=== PATIENT | male | born 1960 | race African-American/Black ===

== ENCOUNTER 2016-08-01 23:18 | Emergency (ER) | payer MEDICAID ==
[~2016-08-01] VITALS: Ht 175.3 cm; Wt 72.6 kg
[~2016-08-01 23:18] MED LIST: DILANTIN100 MG ORAL; DILANTIN30 MG ORAL
[2016-08-01] MEDS ORDERED: Phenytoin 500 MG in NS 110 ML IVPB ONE (23:30)
[2016-08-01] MEDS ORDERED: Phenytoin Susp 100mg/4ml NG ONE (23:30)
[2016-08-01] MEDS ORDERED: TdaP Vaccine 0.5ml Syr IM ONE (23:30)
[2016-08-01] MEDS ORDERED: Phenytoin 250mg/5ml vial ONE (23:42)
[2016-08-01] MEDS ORDERED: Phenytoin 100mg cap ORAL ONE (23:45)
[2016-08-01 23:59] VITALS: BP 125/90
[2016-08-02] MEDS ORDERED: Lidocaine 1% 10mg/ml/Epi 0.005mg/ml 30ml vial INJ ONE ×2 (00:36→00:45)
[2016-08-02 02:15] VITALS: BP 107/69
[2016-08-02] MEDS ORDERED: DILANTIN100 MG ORAL (02:50)
--- NOTE | 2016-08-02 02:50 | Emergency Room Report ---
History of Present Illness General Chief Complaint: Laceration Source: Patient, Medical Record, EMS Present Illness HPI Is a 56-year-old male with a history of seizure. He was brought in by EMS for head injury. Patient was sleeping on a bench and fell off the bench sustaining a laceration to the right eyebrow forehead area. Patient said he has a seizure before he fell. He did have incontinence of his urine. He said he did bite his tongue. Patient did admit to drinking heavily today. He is homeless and alcoholic. He said he hasn't been taking his Dilantin. No other injury. Not suicidal or homicidal. No other complaint. Allergies: Coded Allergies: No Known Allergies (Unverified , 08/25/13) Patient History Past Medical History: see triage record, old chart reviewed, seizures Past Surgical History: other Pertinent Family History: none Social History: Reports: alcohol use Immunizations: other Reviewed Nursing Documentation: PMH: Agreed, PSxH: Agreed Nursing Documentation-PMH Hx Cardiac Problems: No Hx Hypertension: Yes Hx Cancer: No Hx Gastrointestinal Problems: No Hx Neurological Problems: Yes Hx Seizures: Yes Review of Systems Eye: Denies: blurred vision, eye pain ENT: Denies: ear pain, nose congestion, throat swelling Respiratory: Denies: cough, shortness of breath Cardiovascular: Denies: chest pain, palpitations Gastrointestinal: Denies: abdominal pain, diarrhea, nausea, vomiting Musculoskeletal: Denies: back pain, joint pain Skin: Denies: rash Neurological: Denies: headache, numbness Endocrine: Denies: increased thirst, increased urine Hematologic/Lymphatic: Denies: easy bruising All Other Systems: negative except mentioned in HPI Physical Exam Vital Signs Date Time Temp Pulse Resp B/P Pulse Ox O2 Delivery O2 Flow Rate FiO2 08/01/16 23:19 97.2 99 16 156/91 96 Room Air vitals with hypertension Sp02 EP Interpretation: reviewed, normal General Appearance: well appearing, no apparent distress, alert Head: normocephalic, other - 2.5 cm laceration over the right eyebrow. Slightly gaping. No foreign body. Eyes: bilateral eye EOMI, bilateral eye PERRL ENT: hearing grossly normal, normal pharynx Neck: full range of motion, supple, no meningismus Respiratory: chest non-tender, lungs clear, normal breath sounds Cardiovascular #1: regular rate, rhythm, no murmur Gastrointestinal: normal bowel sounds, non tender, no mass, no organomegaly, no bruit, non-distended Musculoskeletal: back normal, gait/station normal, normal range of motion Psychiatric: mood/affect normal Skin: warm/dry Procedures Laceration/Wound Repair Laceration/Wound Repair : Consent: Verbal Wound Location: face Wound's Depth, Shape: irregular, flap, stellate, contused tissue Wound Length (cm): 2 Wound Explored: clean Irrigated w/ Saline (ccs): 500 Betadine Prep?: No Anesthesia: Lidocaine w/ Epi Volume Anesthetic (ccs): 2 Wound Repaired With: sutures Suture Size/Type: 5:0, other - Vicryl Number of Sutures: 5 Patient Tolerated: Well Complications: None Medical Decision Making Diagnostic Impression: Primary Impression: Epileptic seizure, generalized Additional Impressions: medication non-compliance Head injury, acute Qualified Codes: S09.90XA - Unspecified injury of head, initial encounter Laceration of eyebrow, right Qualified Codes: S01.111A - Laceration without foreign body of right eyelid and periocular area, initial encounter Alcohol intoxication Qualified Codes: F10.120 - Alcohol abuse with intoxication, uncomplicated ER Course Patient presents with probable seizure and head injury. CT scan negative. Load him with Dilantin here. No evidence of intracranial bleed or fracture. We 'll discharge him in the morning. CT/MRI/US Diagnostic Results CT/MRI/US Diagnostic Results : Imaging Test Ordered: CT head Impression negative per radiologist Last Vital Signs Date Time Temp Pulse Resp B/P Pulse Ox O2 Delivery O2 Flow Rate FiO2 08/02/16 02:15 97.2 88 14 107/69 98 Room Air Status: improved Disposition: HOME, SELF-CARE Condition: Stable Scripts Phenytoin Sodium Extended* (DILANTIN*) 100 Mg Capsule 300 MG ORAL BEDTIME, #90 CAP Prov: BETY UNGER M.D. 08/02/16 Referrals: NOT CHOSEN IPA/,REFERRING (PCP) Patient Instructions: Laceration Care, Adult Additional Instructions: Take your medication. Stop drinking alcohol. Followup with your DrMary in 2 to 3 days. Return it worse. BETY UNGER M.D. Aug 02, 2016 02:50
[2016-08-02 04:51] VITALS: BP 100/59
[2016-08-02 06:31] VITALS: BP 101/62
[2016-08-02 07:15] VITALS: BP 130/80
[2016-08-02 10:02] VITALS: BP 147/89
[2016-08-02 10:12] VITALS: BP 130/80
--- NOTE | 2016-08-04 08:05 | Diagnostic Imaging Report ---
Indication: Seizure Technique: Continuous helical CT scanning of the head was performed utilizing automated exposure control without intravenous contrast material. Axial and coronal reconstructions were obtained. Comparison: 06/28/14 CT dose: Total DLP 1333 mGycm; CTDI vol 70.4 mGy Findings: There is no acute intracranial hemorrhage, mass effect or cortical edema. The ventricles, cisterns and sulci are prominent consistent with atrophy. Periventricular hypoattenuation is seen, a nonspecific finding. The posterior fossa and fourth ventricle are unremarkable. Sellar and suprasellar regions are grossly unremarkable. Visualized mastoid air cells and paranasal sinuses are unremarkable. No focal lesions of the bony calvarium or soft tissues of the scalp are seen. Impression: No evidence of acute intracranial hemorrhage, mass effect or cortical edema. MRI may be obtained for more sensitive evaluation as clinically indicated. Atrophy and nonspecific periventricular hypoattenuation suggestive of chronic ischemic microvascular changes. The CT scanner at [facility] is accredited by the [employer] and the scans are performed using protocols designed to limit radiation exposure to as low as reasonably achievable to attain images of sufficient resolution adequate for diagnostic evaluation.
== END 2016-08-02 10:15 | disposition home or self-care (01) ==
LOC: EDBD 23:18 → EMR 23:31
DX: S09.90XA Unspecified injury of head, initial encounter (principal); G40.409 Other generalized epilepsy and epileptic syndromes, not intractable, without status epilepticus; S01.111A Laceration without foreign body of right eyelid and periocular area, initial encounter; F10.120 Alcohol abuse with intoxication, uncomplicated; Z91.14 Patient's other noncompliance with medication regimen; I10 Essential (primary) hypertension; R32 Unspecified urinary incontinence; Z59.0 Homelessness; Z23 Encounter for immunization
CPT/HCPCS: 12011; 70450; 82962; 90471; 90715; 96360; 99284; J1165; Z7502

== ENCOUNTER 2018-09-24 20:13 | Emergency (ER) | payer MEDICAID ==
[~2018-09-24] VITALS: Ht 170.2 cm; Wt 71.2 kg
--- NOTE | 2018-09-24 20:20 | Emergency Room Report ---
History of Present Illness General Chief Complaint: Lower Extremity Injury Source: Patient Present Illness HPI Patient is a 58-year-old male who presented after increased lower extremity pain to the right hip. Patient a prior history of chronic hip pain and apparently had been seen at [facility] for similar symptoms in the past. Patient reports having recent heavy alcohol use as well as smoking marijuana. He reports having constant pain to the hip worse with ambulation. Allergies: Coded Allergies: No Known Allergies (Unverified , 08/25/13) Nursing Documentation-H Hx Cardiac Problems: No Hx Hypertension: Yes Hx Asthma: Yes Hx Cancer: No Hx Gastrointestinal Problems: No Hx Neurological Problems: Yes Hx Seizures: Yes Physical Exam Vital Signs Date Time Temp Pulse Resp B/P (MAP) Pulse Ox O2 Delivery O2 Flow Rate FiO2 09/24/18 20:07 98.1 96 18 127/85 (99) 98 Room Air Medical Decision Making Diagnostic Impression: Primary Impression: alcohol abuse Additional Impression: Chronic hip pain ER Course . Patient presented for chronic hip pain. Differential diagnosis include was not limited to arthritis, fracture, among others. Patient has a benign exam and does not appear to require any further imaging or laboratory testing at this time. Patient states "I can't fucking walk' patient was noted to be ambulatory with a cane. patient reportedly has pain in his hip. Patient was given pain medications and was not given any narcotic pain medications recent alcohol abuse. Patient was noted to be markedly combative and intermittently threatening.Patient was noted to be ambulatory without assistance and will be discharged home. He was given prescription for lidocaine patch. He was advised to follow-up with orthopedics. Last Vital Signs Date Time Temp Pulse Resp B/P (MAP) Pulse Ox O2 Delivery O2 Flow Rate FiO2 09/24/18 20:07 98.1 96 18 127/85 (99) 98 Room Air Status: improved Disposition: HOME, SELF-CARE Condition: Stable Ganga Davis MD September 24, 2018 20:20
[2018-09-24] MEDS ORDERED: DILANTIN50 MG ORAL (20:28)
--- NOTE | 2018-09-24 20:32 | NUR ---
ED Nurse Note: pt brought in by ambulance from [facility] c/o brittney hip pain, pt states he's been having pain for three years and progressively worsening, states he can't walk anymore. noted pt ambulating with cane. pt reports he goes to [facility] and get injections but it doesn't help with pain. pt reports he has been drinking today and smokes weed for pain. will cont monitor. cms intact.
[2018-09-24 20:35] VITALS: BP 127/85
[2018-09-24] MEDS ORDERED: Acetaminophen 500mg (ES) tab ORAL ONE (20:45)
[2018-09-24] MEDS ORDERED: VOLTAREN100 G1 TP (20:52)
--- NOTE | 2018-09-24 20:55 | NUR ---
ED Nurse Note: pt refused to take medications, ERMD notified.
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
[2018-09-24 21:00] VITALS: BP 127/85
== END 2018-09-24 20:58 | disposition home or self-care (01) ==
LOC: EDBD 20:13 → EMR 20:38
DX: F10.10 Alcohol abuse, uncomplicated (principal); M25.551 Pain in right hip; G89.29 Other chronic pain; F12.90 Cannabis use, unspecified, uncomplicated; I10 Essential (primary) hypertension; J45.909 Unspecified asthma, uncomplicated
CPT/HCPCS: 99283